=== PATIENT | female | born 1990 | race Caucasian/White ===

== ENCOUNTER 2023-09-06 08:08 | Emergency (ER) | payer OTHER, SELFPAY ==
--- NOTE | 2023-09-06 08:15 | ED.EAR ---
HPI - Ear Problem General Chief complaint: Ear Stated complaint: EARACHE Source: patient, RN notes reviewed and old records reviewed Mode of arrival: ambulatory Limitations: no limitations History of Present Illness HPI Narrative: 32 year old female who presents to [facility] care with complaints of right ear pain which started 2 weeks ago with initial itching and irritation of right ear. Patient reports since Wednesday she has had increased pain with swollen lymph node below her right ear with muffled hearing. Patient reports that she did a Tele-DOC visit and received ear drops which she has been using but experiencing worse pain today. Patient has noted swelling to her ear canal with some tragal discomfort. Patient reports that she has been taking Ibuprofen for her discomfort with last dose at 0600. Patient reports that she has been swimming with her children lately at her mother's pool. MD Complaint: ear pain Location: right ear Duration: constant (for past 3 days increased symptoms) Severity: moderate Discharge from ear: Reports no Treatment prior to arrival: eardrops and oral analgesic (Tylenol and Ibuprofen) Related Data Home Medications Medication Instructions Recorded Confirmed ciprofloxacin 0.3 %-dexamethasone 4 drp RIGHT EAR BID 09/06/23 09/06/23 0.1 % ear drops,suspension Allergies Allergy/AdvReac Type Severity Reaction Status Date / Time No Known Allergies Allergy Verified 09/06/23 08:18 Review of Systems Review of Systems: CONSTITUTIONAL: Reports malaise, chills, sweats, or fever. EYES: Denies visual changes, redness, or discharge. ENT: Reports rhinorrhea, congestion, no sinus pain, right otalgia and no sore throat. CARDIOVASCULAR: Denies chest pain, palpitations, or edema. RESPIRATORY: Reports no cough.? Denies dyspnea. GASTROINTESTINAL: Denies abdominal pain, nausea, vomiting, diarrhea SKIN: Denies rash or itching. MUSCULOSKELETAL: Denies myalgia. NEUROLOGIC: Denies headache. All systems reviewed & are unremarkable except as noted in HPI and below PMFSH Surgical History Surgical History (Updated 09/06/23 @ 08:31 by Marcella Pinon NP) Previous section x2 Social History Social History (Updated 09/06/23 @ 08:31 by Marcella Pinon NP) Smoking status: Never smoker Alcohol intake: current Alcohol use details: social Substance use type: does not use Living arrangements: with family Gender identity (if verbalized by the patient): Female Comments At time of signature, agree with nursing past medical, surgical, social and family history. There is no relevant family history pertinent to the presenting complaint Exam Narrative: GENERAL: Well-appearing, well-nourished, and in no acute distress. HEAD: Normocephalic EYES: PERRLA, conjunctivae clear ENT: Nares clear, turbinates edematous and erythematous, clear discharge. Mucous membranes moist.Right ear TM red with ear canal irritated and swollen, Left TM pearly griffin with dull light reflex bilaterally; right tragal tenderness. Oropharynx mildly erythematous without lesions. Tonsils not enlarged and without exudate, no drooling, no hoarseness, no trismus, uvula midline. some post nasal drainage noted NECK: Supple. right lymphadenopathy CHEST: Clear to auscultation, breath sounds equal. No wheezing, rhonchi, rales, or stridor. No respiratory distress, speaks in full sentences.SAO2 100% on room air HEART: Regular rate and rhythm. No murmur heard. SKIN: Warm, dry, no rash. NEURO: Alert and oriented x3. PSYCH: Normal mood and affect Course Course Emergency Course: Patient is aware of diagnosis, understands and agrees to treatment plan.? Anticipatory guidance given.? Patient agrees to follow-up as directed and is aware of reasons to seek care at the emergency department. Portions of this record may have been created with voice recognition software Level of Care: Express Care Visit Vital S
[2023-09-06 08:18] VITALS: BP 120/88; PULSE 87; RESP 16; TEMP 37; O2SAT 100
[2023-09-06 08:19] VITALS: BP 120/88; PULSE 87; RESP 16; TEMP 37; O2SAT 100
== END 2023-09-06 08:38 | disposition home or self-care (01) ==
PROVIDERS: Emergency Provider Registered Nurse; PCP Nurse Practitioner Family
DX: H60.331 Swimmer's ear, right ear (principal); H65.01 Acute serous otitis media, right ear
CPT/HCPCS: 99213; G0463